=== PATIENT | female | born 1940 | race African-American/Black ===

== ENCOUNTER → 2017-06-16 10:23 | Outpatient (CLI) | payer MEDICARE ==
[2013-07-28 15:14] VITALS: BMI 36.6
[~2017-06-16 10:23] MED LIST: ACETAMINOPHEN-C1 TAB PO; CRESTOR10 MG PO; DETROL LA4 MG PO; FERRALET 90 TA1 EACH PO; GLUCOPHAGE500 MG PO; HEMOCYTE PLUS1 CAP PO; KLOR-CON M2020 MEQ PO; LANTUS SOL100 UNIT/1 SQ; LASIX40 MG PO; LOPRESSOR50 MG PO; MULTI-DAY VITAM1 TAB PO; NEURONTIN 100100 MG PO; PLAVIX75 MG PO; PRILOSEC20 MG PO; ZYLOPRIM300 MG PO
== END | disposition home or self-care (01) ==
LOC: D.US 10:23
DX: M79.605 Pain in left leg (principal); M79.604 Pain in right leg; I73.9 Peripheral vascular disease, unspecified

== ENCOUNTER → 2020-11-13 11:06 | Outpatient (CLI) | payer MEDICARE ==
[2013-07-28 15:14] VITALS: BMI 36.6
== END | disposition home or self-care (01) ==
LOC: D.US 10-23 09:00
PROVIDERS: ATTEND Thoracic Surgery (Cardiothoracic Vascular Surgery)
DX: I65.23 Occlusion and stenosis of bilateral carotid arteries (principal)